=== PATIENT | male | born 1950 | race Caucasian/White ===

== ENCOUNTER → 2018-02-22 | Outpatient (CLI) | payer MEDICARE, OTHER ==
[~2018-02-22] MED LIST: ACIPHEX20 MG PO; GLUCOPHAGE500 MG/TAB PO; LIPITOR20 MG PO; PRILOSEC 20MG20 MG PO; VITAMIN D31000 IU PO; ZOCOR40 MG PO
== END ==
LOC: COL.RAD 08:48
DX: M25.551 Pain in right hip (principal)
CPT/HCPCS: J3301; Q9967

== ENCOUNTER → 2019-10-24 | Outpatient (CLI) | payer MEDICARE, OTHER | LOC: COL.RAD 07:39 | DX: M25.551 Pain in right hip (principal) | CPT/HCPCS: J3301; Q9967 ==